=== PATIENT | female | born 2000 ===

== ENCOUNTER 2020-05-06 12:58 | Outpatient (CLI) | payer BC ==
--- NOTE | 2020-05-06 13:55 | ULT ---
PELVIC ULTRASOUND: 05/06/20 Transabdominal and endovaginal ultrasound of the pelvis performed. INDICATIONS: Irregular bleeding. FINDINGS: The uterus has a normal sonographic appearance and size. Endometrial stripe is normal measured at 8 mm. Both ovaries are identified and appear unremarkable. Both ovaries show normal appearing follicles. A dominant follicular cyst on the right ovary measures approximately 1.5 cm. Color Doppler and spectral analysis demonstrates blood flow to both ovaries. No free fluid. IMPRESSION: Unremarkable pelvic ultrasound. POS: [facility]
== END 2020-05-06 12:59 | disposition home or self-care (01) ==
LOC: SCSULT 12:58
DX: N92.3 Ovulation bleeding (principal); R10.2 Pelvic and perineal pain
CPT/HCPCS: 76856